=== PATIENT | male | born 1970 | race African-American/Black ===

== ENCOUNTER 2019-01-22 02:51 | Inpatient (IN) ==
[2019-01-22] MEDS ORDERED: INFLUENZA VIRUS VACCINE 0.5 ML SYRINGE IM ONE (05:05)
[2019-01-22] MEDS ORDERED: PHENOL 1.4% THROAT SPRAY 177 ML BOTTLE PO PRN (05:15)
[2019-01-22] MEDS ORDERED: SODIUM CHLORIDE 0.9% 1,000 ML IV PRN (05:15)
[2019-01-22] MEDS ORDERED: SODIUM CHLORIDE 0.9% 1,000 ML IV SCH (05:30)
[2019-01-22] MEDS ORDERED: cefTRIAXone 1,000 MG in SYRINGE 1 EACH IV SCH (05:30)
[2019-01-22] MEDS ORDERED: PANTOPRAZOLE INJ 80 MG in SODIUM CHLORIDE 0.9% 100 ML IV ONE (06:00)
[2019-01-22 06:52] LABS: Bilirubin,Total 0.7 MG/DL (0.2-1.0); Osmolality,Calculated 296.4 MOS/KG (273-304)
[2019-01-22 06:57] LABS: Basophils % 0.2 % (0.0-0.8); Eosinophils % 0.1 % (0.00-10.9); Hematocrit 45.9 VOL% (42.0-52.0); Hemoglobin 14.3 GM/DL (14.0-18.0); Immature Granulocytes % 0.7 %; Immature Granulocytes Absolute 0.07 #; Lymphocytes # 0.8 10*3/uL (1.4-4.0); Lymphocytes % 7.5 % (21.2-54.2); Mean Corpuscular HGB Conc 31.2 GM/DL (32-36); Mean Corpuscular Volume 87.3 FL (87-102); Mean Platelet Volume 8.8 FL (9.6-12.0); Monocytes % 5.6 % (1.7-12.7); Neutrophils % 85.9 % (38.7-73.9); Platelet Count 324 T/CUMM (130-400); Red Blood Count 5.26 MC/CUMM (3.8-5.5); Red Cell Distribution Width 13.9 % (9.3-17.3); White Blood Count 10.2 T/CUMM (4-12)
[2019-01-22] MEDS: PANTOPRAZOLE INJ 200 MG in SODIUM CHLORIDE 0.9% 250 ML IV SCH (07:07)
[2019-01-22 07:10] LABS: Band Neutrophils 9 % (0-10); Lymphocytes 11 % (20-55); Platelet Estimate Adequate; Segmented Neutrophils 76 % (50-85); Total Cells Counted 100
[2019-01-22 07:11] LABS: Burr Cells Slight; Ovalocytes Slight
[2019-01-22 07:27] LABS: Apearance,Urine CLEAR (Clear); Bacteria,Urine Occasional /HPF (Few); Bilirubin,Urine Negative (Negative); Blood, Urine Negative (Negative); Glucose,Urine (UA) Negative (Negative); Hyaline Casts,Urine 1 /LPF (0-3); Ketones,Urine Negative (Negative); Mucus,Urine Occasional /LPF (Occasional); Nitrite,Urine Negative (Negative); Protein,Urine 30 MG/DL; RBC,Urine 12 /HPF (0-4); Urine Color Yellow (Yellow)
[2019-01-22] MEDS: ALBUTEROL/IPRATROPIUM 3 ML NEB RESP TX SCH ×2 (08:17→12:07)
[2019-01-22] MEDS ORDERED: methylPREDNISolone SOD SUC 125 MG/2 ML VIAL IV ONE (10:00)
[2019-01-22] MEDS: FUROSEMIDE 40 MG/4 ML VIAL IV SCH ×2 (10:00→21:33)
[2019-01-22] MEDS: LEVOFLOXACIN 750 MG TABLET PO SCH (10:10)
[2019-01-22 12:52] LABS: INR 1.1; PT Patient Result 11.7 SECS (9.6-12.2)
[2019-01-22 12:53] LABS: Hematocrit 44.2 VOL% (42.0-52.0)
[2019-01-22] MEDS: LEVALBUTEROL 1.25 MG/3 ML NEB RESP TX SCH ×2 (13:21→19:30)
[2019-01-22] MEDS: IPRATROPIUM 500 MCG/2.5 ML NEB RESP TX SCH ×2 (13:21→19:30)
[2019-01-22] MEDS: chlordiazePOXIDE 25 MG CAPSULE PO SCH ×2 (14:45→21:32)
[2019-01-22] MEDS: ONDANSETRON 4 MG/2 ML VIAL IV PRN (16:15)
[2019-01-22] MEDS ORDERED: fentaNYL 100 MCG/2 ML VIAL IV ONE (17:39)
[2019-01-22] MEDS: methylPREDNISolone SOD SUC 40 MG/1 ML VIAL IV SCH (21:33)
[2019-01-23] MEDS: LEVALBUTEROL 1.25 MG/3 ML NEB RESP TX SCH ×4 (00:28→19:45)
[2019-01-23] MEDS: IPRATROPIUM 500 MCG/2.5 ML NEB RESP TX SCH ×4 (00:28→19:45)
[2019-01-23 04:31] LABS: Basophils % 0.2 % (0.0-0.8); Hematocrit 39.7 VOL% (42.0-52.0); Hemoglobin 12.6 GM/DL (14.0-18.0); Immature Granulocytes % 0.4 %; Immature Granulocytes Absolute 0.07 #; Lymphocytes % 5.8 % (21.2-54.2); Mean Corpuscular HGB Conc 31.7 GM/DL (32-36); Mean Corpuscular Volume 83.1 FL (87-102); Mean Platelet Volume 8.9 FL (9.6-12.0); Monocytes % 4.4 % (1.7-12.7); Neutrophils % 89.2 % (38.7-73.9); Platelet Count 338 T/CUMM (130-400); Red Blood Count 4.78 MC/CUMM (3.8-5.5); Red Cell Distribution Width 14.1 % (9.3-17.3); White Blood Count 16.5 T/CUMM (4-12)
[2019-01-23 04:57] LABS: Band Neutrophils 7 % (0-10); Hypochromasia 1+; Lymphocytes 10 % (20-55); Ovalocytes Slight; Platelet Estimate Adequate; Segmented Neutrophils 79 % (50-85); Total Cells Counted 100
[2019-01-23 05:07] LABS: Albumin 2.6 G/DL (3.4-5.0); Bilirubin,Total 0.6 MG/DL (0.2-1.0); Calcium 8.6 MG/DL (8.5-10.1); Osmolality,Calculated 284.5 MOS/KG (273-304); Total Protein 7.1 G/DL (6.4-8.3)
[2019-01-23] MEDS: PANTOPRAZOLE INJ 200 MG in SODIUM CHLORIDE 0.9% 250 ML IV SCH (07:40)
[2019-01-23] MEDS ORDERED: LACTATED RINGERS 1,000 ML IV SCH (08:00)
[2019-01-23] MEDS: FUROSEMIDE 40 MG/4 ML VIAL IV SCH ×2 (08:00→21:44)
[2019-01-23] MEDS ORDERED: PROPOFOL 200 MG/20 ML VIAL IV ONE (09:08)
[2019-01-23] MEDS ORDERED: LIDOCAINE 2% 5 ML VIAL ONE (09:08)
[2019-01-23] MEDS ORDERED: ALBUTEROL/IPRATROPIUM 3 ML NEB RESP TX STA (09:48)
[2019-01-23] MEDS: methylPREDNISolone SOD SUC 40 MG/1 ML VIAL IV SCH ×2 (11:50→21:44)
[2019-01-23] MEDS: THIAMINE 100 MG TABLET PO SCH (11:59)
[2019-01-23] MEDS: chlordiazePOXIDE 25 MG CAPSULE PO SCH ×3 (11:59→21:45)
[2019-01-23] MEDS: LEVOFLOXACIN 750 MG TABLET PO SCH (11:59)
[2019-01-23] MEDS: FOLIC ACID 1 MG TABLET PO SCH (11:59)
[2019-01-23] MEDS ORDERED: BISACODYL 5 MG TABLET PO ONE (12:00)
[2019-01-23] MEDS ORDERED: POLYETHYLENE GLYCOL POWDER 255 GM BOTTLE PO ONE (18:00)
[2019-01-23] MEDS: MORPHINE 4 MG/1 ML VIAL IV PRN (19:57)
[2019-01-23] MEDS: PANTOPRAZOLE 40 MG VIAL IV SCH (21:44)
[2019-01-24] MEDS: MORPHINE 4 MG/1 ML VIAL IV PRN ×3 (01:17→20:03)
[2019-01-24] MEDS: LEVALBUTEROL 1.25 MG/3 ML NEB RESP TX SCH ×4 (01:30→19:51)
[2019-01-24] MEDS: IPRATROPIUM 500 MCG/2.5 ML NEB RESP TX SCH ×4 (01:30→19:51)
[2019-01-24 04:52] LABS: Basophils % 0.1 % (0.0-0.8); Hematocrit 38.4 VOL% (42.0-52.0); Hemoglobin 12.5 GM/DL (14.0-18.0); Immature Granulocytes % 0.6 %; Immature Granulocytes Absolute 0.08 #; Lymphocytes # 1.3 10*3/uL (1.4-4.0); Lymphocytes % 9.2 % (21.2-54.2); Mean Corpuscular HGB Conc 32.6 GM/DL (32-36); Mean Corpuscular Volume 81.9 FL (87-102); Mean Platelet Volume 9.2 FL (9.6-12.0); Monocytes % 9.6 % (1.7-12.7); Neutrophils % 80.5 % (38.7-73.9); Platelet Count 366 T/CUMM (130-400); Red Blood Count 4.69 MC/CUMM (3.8-5.5); Red Cell Distribution Width 14.2 % (9.3-17.3); White Blood Count 14.2 T/CUMM (4-12)
[2019-01-24 05:00] LABS: INR 1.1; PT Patient Result 11.9 SECS (9.6-12.2)
[2019-01-24 05:18] LABS: Calcium 9.3 MG/DL (8.5-10.1); Osmolality,Calculated 285.5 MOS/KG (273-304)
[2019-01-24] MEDS ORDERED: LACTATED RINGERS 1,000 ML IV SCH (08:00)
[2019-01-24] MEDS ORDERED: POTASSIUM CHLORIDE 20 MEQ/15 ML UDCUP PO ONE (08:16)
[2019-01-24] MEDS: LEVOFLOXACIN 750 MG TABLET PO SCH (08:58)
[2019-01-24] MEDS: FOLIC ACID 1 MG TABLET PO SCH (08:58)
[2019-01-24] MEDS: chlordiazePOXIDE 25 MG CAPSULE PO SCH ×3 (08:58→20:02)
[2019-01-24] MEDS: THIAMINE 100 MG TABLET PO SCH (08:58)
[2019-01-24] MEDS: FUROSEMIDE 40 MG/4 ML VIAL IV SCH ×2 (09:43→20:03)
[2019-01-24] MEDS: PANTOPRAZOLE 40 MG VIAL IV SCH ×2 (10:00→20:02)
[2019-01-24] MEDS: methylPREDNISolone SOD SUC 40 MG/1 ML VIAL IV SCH ×2 (11:02→22:11)
[2019-01-24] MEDS ORDERED: PHENYLEPHRINE 1 MG/10 ML SYRINGE IV ONE (11:23)
[2019-01-24] MEDS ORDERED: LIDOCAINE 100 MG/5 ML SYRINGE ONE (11:23)
[2019-01-24] MEDS ORDERED: ETOMIDATE 20 MG/10 ML VIAL IV ONE (11:23)
[2019-01-24] MEDS: ONDANSETRON 4 MG/2 ML VIAL IV PRN (22:11)
[2019-01-25] MEDS: LEVALBUTEROL 1.25 MG/3 ML NEB RESP TX SCH ×4 (01:29→19:45)
[2019-01-25] MEDS: IPRATROPIUM 500 MCG/2.5 ML NEB RESP TX SCH ×4 (01:29→19:45)
[2019-01-25] MEDS: MORPHINE 4 MG/1 ML VIAL IV PRN ×2 (01:54→06:14)
[2019-01-25] MEDS: ONDANSETRON 4 MG/2 ML VIAL IV PRN (06:14)
[2019-01-25] MEDS: THIAMINE 100 MG TABLET PO SCH (08:55)
[2019-01-25] MEDS: POTASSIUM CHLORIDE 20 MEQ TABLET PO SCH (08:55)
[2019-01-25] MEDS: LEVOFLOXACIN 750 MG TABLET PO SCH (08:55)
[2019-01-25] MEDS: FOLIC ACID 1 MG TABLET PO SCH (08:55)
[2019-01-25] MEDS: PANTOPRAZOLE 40 MG VIAL IV SCH ×2 (08:55→20:39)
[2019-01-25] MEDS: chlordiazePOXIDE 25 MG CAPSULE PO SCH ×3 (08:55→20:38)
[2019-01-25] MEDS: FUROSEMIDE 40 MG/4 ML VIAL IV SCH ×2 (08:56→20:43)
[2019-01-25] MEDS: methylPREDNISolone SOD SUC 40 MG/1 ML VIAL IV SCH (09:47)
[2019-01-25 10:51] LABS: Calcium 9.1 MG/DL (8.5-10.1)
[2019-01-26] MEDS: LEVALBUTEROL 1.25 MG/3 ML NEB RESP TX SCH ×4 (01:22→18:54)
[2019-01-26] MEDS: IPRATROPIUM 500 MCG/2.5 ML NEB RESP TX SCH ×4 (04:01→19:49)
[2019-01-26 04:46] LABS: Basophils % 0.3 % (0.0-0.8); Eosinophils % 0.1 % (0.00-10.9); Hematocrit 38.1 VOL% (42.0-52.0); Hemoglobin 12.3 GM/DL (14.0-18.0); Immature Granulocytes % 2.3 %; Immature Granulocytes Absolute 0.27 #; Lymphocytes # 1.7 10*3/uL (1.4-4.0); Lymphocytes % 14.2 % (21.2-54.2); Mean Corpuscular HGB Conc 32.3 GM/DL (32-36); Mean Corpuscular Volume 82.1 FL (87-102); Mean Platelet Volume 8.8 FL (9.6-12.0); Monocytes % 7.7 % (1.7-12.7); Neutrophils % 75.4 % (38.7-73.9); Platelet Count 360 T/CUMM (130-400); Red Blood Count 4.64 MC/CUMM (3.8-5.5); Red Cell Distribution Width 14.2 % (9.3-17.3); White Blood Count 11.9 T/CUMM (4-12)
[2019-01-26 04:55] LABS: Calcium 9.5 MG/DL (8.5-10.1); Osmolality,Calculated 283.4 MOS/KG (273-304)
[2019-01-26] MEDS ORDERED: MAGNESIUM CITRATE 300 ML BOTTLE PO ONE (06:00)
[2019-01-26] MEDS: FOLIC ACID 1 MG TABLET PO SCH (09:27)
[2019-01-26] MEDS: PANTOPRAZOLE 40 MG VIAL IV SCH ×2 (09:27→20:28)
[2019-01-26] MEDS: LEVOFLOXACIN 750 MG TABLET PO SCH (09:27)
[2019-01-26] MEDS: POTASSIUM CHLORIDE 20 MEQ TABLET PO SCH (09:27)
[2019-01-26] MEDS: chlordiazePOXIDE 25 MG CAPSULE PO SCH ×3 (09:27→20:28)
[2019-01-26] MEDS: FUROSEMIDE 40 MG/4 ML VIAL IV SCH (09:27)
[2019-01-26] MEDS: THIAMINE 100 MG TABLET PO SCH (09:27)
[2019-01-26] MEDS: POTASSIUM CHLORIDE 20 MEQ TABLET PO PRN ×4 (10:44→17:08)
[2019-01-26] MEDS ORDERED: BISACODYL 5 MG TABLET PO ONE (12:00)
[2019-01-26] MEDS: BUDESONIDE 0.5 MG/2 ML NEB RESP TX SCH ×2 (13:00→19:49)
[2019-01-26] MEDS: DORNASE ALFA 2.5 MG/2.5 ML VIAL RESP TX SCH ×2 (13:18→19:59)
[2019-01-26] MEDS ORDERED: POLYETHYLENE GLYCOL 3350/ELECTROLYTES 4,000 ML BOTTLE PO ONE (18:00)
[2019-01-27] MEDS: LEVALBUTEROL 1.25 MG/3 ML NEB RESP TX SCH ×4 (00:23→19:15)
[2019-01-27] MEDS: IPRATROPIUM 500 MCG/2.5 ML NEB RESP TX SCH ×4 (02:04→19:15)
[2019-01-27 05:02] LABS: Basophils # 0.1 10*3/uL (0.0-0.2); Basophils % 0.6 % (0.0-0.8); Eosinophils # 0.1 10*3/uL (0.0-0.87); Eosinophils % 0.9 % (0.00-10.9); Hematocrit 40.7 VOL% (42.0-52.0); Hemoglobin 12.8 GM/DL (14.0-18.0); Immature Granulocytes % 5.3 %; Immature Granulocytes Absolute 0.74 #; Lymphocytes # 2.5 10*3/uL (1.4-4.0); Lymphocytes % 17.9 % (21.2-54.2); Mean Corpuscular HGB Conc 31.4 GM/DL (32-36); Mean Corpuscular Volume 84.3 FL (87-102); Monocytes % 9.6 % (1.7-12.7); NRBC # 0.03 10*3/uL; Neutrophils % 65.7 % (38.7-73.9); Platelet Count 411 T/CUMM (130-400); Red Blood Count 4.83 MC/CUMM (3.8-5.5); Red Cell Distribution Width 14.4 % (9.3-17.3); White Blood Count 13.9 T/CUMM (4-12)
[2019-01-27 05:18] LABS: Calcium 9.9 MG/DL (8.5-10.1); Osmolality,Calculated 282.4 MOS/KG (273-304)
[2019-01-27 05:25] LABS: Eosinophils 2 % (0-10); Hypochromasia 1+; Lymphocytes 20 % (20-55); Ovalocytes Slight; Platelet Estimate Adequate; Segmented Neutrophils 68 % (50-85); Total Cells Counted 100
[2019-01-27] MEDS: DORNASE ALFA 2.5 MG/2.5 ML VIAL RESP TX SCH ×2 (07:30→19:37)
[2019-01-27] MEDS: BUDESONIDE 0.5 MG/2 ML NEB RESP TX SCH ×2 (07:30→19:15)
[2019-01-27] MEDS ORDERED: LACTATED RINGERS 1,000 ML IV SCH (08:00)
[2019-01-27] MEDS: PANTOPRAZOLE 40 MG VIAL IV SCH ×2 (08:12→20:58)
[2019-01-27] MEDS: POTASSIUM CHLORIDE 20 MEQ TABLET PO SCH (08:12)
[2019-01-27] MEDS: FOLIC ACID 1 MG TABLET PO SCH (08:12)
[2019-01-27] MEDS: THIAMINE 100 MG TABLET PO SCH (08:13)
[2019-01-27] MEDS: chlordiazePOXIDE 25 MG CAPSULE PO SCH ×3 (08:13→20:58)
[2019-01-27] MEDS: LEVOFLOXACIN 750 MG TABLET PO SCH (08:13)
[2019-01-27] MEDS ORDERED: BISACODYL 5 MG TABLET PO ONE (12:00)
[2019-01-27] MEDS ORDERED: POLYETHYLENE GLYCOL POWDER 255 GM BOTTLE PO ONE (18:00)
[2019-01-27] MEDS: buPROPion SR 100 MG TABLET PO SCH (20:58)
[2019-01-28] MEDS: LEVALBUTEROL 1.25 MG/3 ML NEB RESP TX SCH ×3 (00:08→11:28)
[2019-01-28] MEDS: IPRATROPIUM 500 MCG/2.5 ML NEB RESP TX SCH ×3 (00:08→12:50)
[2019-01-28 05:39] LABS: Basophils # 0.1 10*3/uL (0.0-0.2); Basophils % 0.7 % (0.0-0.8); Eosinophils # 0.3 10*3/uL (0.0-0.87); Eosinophils % 2.4 % (0.00-10.9); Hematocrit 37.7 VOL% (42.0-52.0); Immature Granulocytes % 9.4 %; Lymphocytes # 2.5 10*3/uL (1.4-4.0); Lymphocytes % 18.2 % (21.2-54.2); Mean Corpuscular HGB Conc 31.8 GM/DL (32-36); Mean Corpuscular Volume 83.2 FL (87-102); Mean Platelet Volume 8.9 FL (9.6-12.0); Monocytes % 8.6 % (1.7-12.7); Neutrophils % 60.7 % (38.7-73.9); Platelet Count 392 T/CUMM (130-400); Red Blood Count 4.53 MC/CUMM (3.8-5.5); Red Cell Distribution Width 14.5 % (9.3-17.3); White Blood Count 13.9 T/CUMM (4-12)
[2019-01-28 05:46] LABS: INR 1.1; PT Patient Result 11.4 SECS (9.6-12.2)
[2019-01-28 06:00] LABS: Band Neutrophils 3 % (0-10); Calcium 9.2 MG/DL (8.5-10.1); Eosinophils 1 % (0-10); Lymphocytes 23 % (20-55); Myelocytes 1 %; Osmolality,Calculated 272.1 MOS/KG (273-304); Platelet Estimate Adequate; Segmented Neutrophils 63 % (50-85); Total Cells Counted 100
[2019-01-28 06:01] LABS: Hypochromasia 1+; Ovalocytes Slight
[2019-01-28] MEDS: BUDESONIDE 0.5 MG/2 ML NEB RESP TX SCH ×2 (07:12→18:40)
[2019-01-28] MEDS: DORNASE ALFA 2.5 MG/2.5 ML VIAL RESP TX SCH ×2 (07:30→18:40)
[2019-01-28] MEDS: LACTATED RINGERS 1,000 ML IV SCH (08:00)
[2019-01-28] MEDS ORDERED: LIDOCAINE 2% 5 ML VIAL ONE (10:00)
[2019-01-28] MEDS ORDERED: ETOMIDATE 20 MG/10 ML VIAL IV ONE (10:00)
[2019-01-28] MEDS ORDERED: PROPOFOL 200 MG/20 ML VIAL IV ONE (10:00)
[2019-01-28] MEDS ORDERED: ALBUTEROL/IPRATROPIUM 3 ML NEB RESP TX ONE (10:37)
[2019-01-28] MEDS ORDERED: methylPREDNISolone SOD SUC 125 MG/2 ML VIAL IV STA (11:27)
[2019-01-28] MEDS ORDERED: methylPREDNISolone SOD SUC 125 MG/2 ML VIAL ONE (11:28)
[2019-01-28] MEDS: THIAMINE 100 MG TABLET PO SCH (12:46)
[2019-01-28] MEDS: chlordiazePOXIDE 25 MG CAPSULE PO SCH ×3 (12:46→20:26)
[2019-01-28] MEDS: POTASSIUM CHLORIDE 20 MEQ TABLET PO SCH (12:46)
[2019-01-28] MEDS: buPROPion SR 100 MG TABLET PO SCH ×2 (12:47→20:26)
[2019-01-28] MEDS: PANTOPRAZOLE 40 MG VIAL IV SCH (12:47)
[2019-01-28] MEDS: FOLIC ACID 1 MG TABLET PO SCH (12:47)
[2019-01-28] MEDS: LEVOFLOXACIN 750 MG TABLET PO SCH (12:47)
[2019-01-28] MEDS ORDERED: chlordiazePOXIDE 25 MG CAPSULE PO PRN (14:58)
[2019-01-28] MEDS: MULTIVITAMIN (BEROCCA) TABLET PO SCH (16:12)
[2019-01-28] MEDS: ENOXAPARIN 40 MG/0.4 ML SYRINGE SUBCUT SCH (16:12)
[2019-01-28] MEDS: VANCOMYCIN INJ 1,000 MG in SODIUM CHLORIDE 0.9% 250 ML IV SCH (16:13)
[2019-01-28] MEDS: PIPERACILLIN/TAZOBACTAM 3,375 MG in SODIUM CHLORIDE 0.9% 100 ML IV SCH (17:31)
[2019-01-28] MEDS: ALBUTEROL/IPRATROPIUM 3 ML NEB RESP TX SCH ×2 (18:40→23:00)
[2019-01-28] MEDS: BUDESONIDE/FORMOTEROL 160-4.5 INHALER 6 GM INH SCH (20:25)
[2019-01-28] MEDS: ONDANSETRON 4 MG/2 ML VIAL IV PRN (20:26)
[2019-01-28] MEDS: MORPHINE 4 MG/1 ML VIAL IV PRN (20:28)
[2019-01-28] MEDS ORDERED: PANTOPRAZOLE 40 MG TABLET PO SCH (21:00)
[2019-01-29] MEDS: PIPERACILLIN/TAZOBACTAM 3,375 MG in SODIUM CHLORIDE 0.9% 100 ML IV SCH ×3 (01:53→17:37)
[2019-01-29] MEDS: MORPHINE 4 MG/1 ML VIAL IV PRN ×2 (01:57→06:04)
[2019-01-29] MEDS: ALBUTEROL/IPRATROPIUM 3 ML NEB RESP TX SCH ×6 (03:00→22:36)
[2019-01-29 05:15] LABS: Basophils % 0.2 % (0.0-0.8); Hematocrit 34.8 VOL% (42.0-52.0); Immature Granulocytes % 6.5 %; Immature Granulocytes Absolute 1.33 #; Lymphocytes # 1.9 10*3/uL (1.4-4.0); Mean Corpuscular HGB Conc 31.6 GM/DL (32-36); Mean Corpuscular Volume 82.9 FL (87-102); Monocytes % 7.6 % (1.7-12.7); Neutrophils % 76.7 % (38.7-73.9); Platelet Count 404 T/CUMM (130-400); Red Cell Distribution Width 14.4 % (9.3-17.3); White Blood Count 20.6 T/CUMM (4-12)
[2019-01-29 05:37] LABS: Calcium 8.9 MG/DL (8.5-10.1); Osmolality,Calculated 281.5 MOS/KG (273-304)
[2019-01-29 05:39] LABS: Lymphocytes 6 % (20-55); Platelet Estimate Normal; Segmented Neutrophils 87 % (50-85); Total Cells Counted 100
[2019-01-29] MEDS: VANCOMYCIN INJ 1,000 MG in SODIUM CHLORIDE 0.9% 250 ML IV SCH ×2 (06:03→15:06)
[2019-01-29] MEDS: ONDANSETRON 4 MG/2 ML VIAL IV PRN (06:04)
[2019-01-29] MEDS: BUDESONIDE 0.5 MG/2 ML NEB RESP TX SCH (07:35)
[2019-01-29] MEDS: DORNASE ALFA 2.5 MG/2.5 ML VIAL RESP TX SCH ×2 (07:45→19:29)
[2019-01-29] MEDS: MULTIVITAMIN (BEROCCA) TABLET PO SCH (08:42)
[2019-01-29] MEDS: PANTOPRAZOLE 40 MG TABLET PO SCH (08:42)
[2019-01-29] MEDS: THIAMINE 100 MG TABLET PO SCH (08:42)
[2019-01-29] MEDS: LEVOFLOXACIN 750 MG TABLET PO SCH (08:42)
[2019-01-29] MEDS: CHOLECALCIFEROL 1,000 UNIT TABLET PO SCH (08:42)
[2019-01-29] MEDS: chlordiazePOXIDE 25 MG CAPSULE PO SCH (08:42)
[2019-01-29] MEDS: buPROPion SR 100 MG TABLET PO SCH ×2 (08:42→22:17)
[2019-01-29] MEDS: NICOTINE 21 MG/24 HR PATCH TRANSDERM SCH (08:43)
[2019-01-29] MEDS: FOLIC ACID 1 MG TABLET PO SCH (08:47)
[2019-01-29] MEDS: BUDESONIDE/FORMOTEROL 160-4.5 INHALER 6 GM INH SCH ×2 (08:47→22:15)
[2019-01-29] MEDS: LACTATED RINGERS 1,000 ML IV SCH (13:40)
[2019-01-29] MEDS: ENOXAPARIN 40 MG/0.4 ML SYRINGE SUBCUT SCH (15:09)
[2019-01-29] MEDS: ACETAMINOPHEN 500 MG TABLET PO SCH ×2 (15:09→22:16)
[2019-01-29] MEDS: NORTRIPTYLINE 25 MG CAPSULE PO SCH (22:16)
[2019-01-30] MEDS: PIPERACILLIN/TAZOBACTAM 3,375 MG in SODIUM CHLORIDE 0.9% 100 ML IV SCH ×3 (01:52→18:29)
[2019-01-30] MEDS: ALBUTEROL/IPRATROPIUM 3 ML NEB RESP TX SCH ×5 (02:30→19:21)
[2019-01-30] MEDS: VANCOMYCIN INJ 1,000 MG in SODIUM CHLORIDE 0.9% 250 ML IV SCH ×2 (05:01→20:01)
[2019-01-30 05:49] LABS: Basophils # 0.1 10*3/uL (0.0-0.2); Basophils % 0.4 % (0.0-0.8); Eosinophils # 0.2 10*3/uL (0.0-0.87); Eosinophils % 1.4 % (0.00-10.9); Hematocrit 32.2 VOL% (42.0-52.0); Immature Granulocytes % 11.8 %; Lymphocytes # 2.4 10*3/uL (1.4-4.0); Lymphocytes % 18.9 % (21.2-54.2); Mean Corpuscular HGB Conc 31.1 GM/DL (32-36); Mean Corpuscular Volume 86.1 FL (87-102); Mean Platelet Volume 8.7 FL (9.6-12.0); Monocytes % 9.2 % (1.7-12.7); NRBC # 0.03 10*3/uL; Neutrophils % 58.3 % (38.7-73.9); Platelet Count 336 T/CUMM (130-400); Red Blood Count 3.74 MC/CUMM (3.8-5.5); Red Cell Distribution Width 14.7 % (9.3-17.3); White Blood Count 12.8 T/CUMM (4-12)
[2019-01-30 06:13] LABS: Band Neutrophils 3 % (0-10); Lymphocytes 24 % (20-55); Segmented Neutrophils 69 % (50-85); Total Cells Counted 100
[2019-01-30 06:14] LABS: Hypochromasia 1+; Ovalocytes Slight; Platelet Estimate Adequate
[2019-01-30 06:33] LABS: Calcium 8.5 MG/DL (8.5-10.1)
[2019-01-30] MEDS: DORNASE ALFA 2.5 MG/2.5 ML VIAL RESP TX SCH ×2 (07:34→19:21)
[2019-01-30] MEDS: ACETAMINOPHEN 500 MG TABLET PO SCH ×3 (09:07→22:29)
[2019-01-30] MEDS: FOLIC ACID 1 MG TABLET PO SCH (09:08)
[2019-01-30] MEDS: LACTATED RINGERS 1,000 ML IV SCH (09:08)
[2019-01-30] MEDS: buPROPion SR 100 MG TABLET PO SCH ×2 (09:08→22:29)
[2019-01-30] MEDS: NICOTINE 21 MG/24 HR PATCH TRANSDERM SCH (09:08)
[2019-01-30] MEDS: THIAMINE 100 MG TABLET PO SCH (09:08)
[2019-01-30] MEDS: CHOLECALCIFEROL 1,000 UNIT TABLET PO SCH (09:08)
[2019-01-30] MEDS: PANTOPRAZOLE 40 MG TABLET PO SCH (09:08)
[2019-01-30] MEDS: MULTIVITAMIN (BEROCCA) TABLET PO SCH (09:08)
[2019-01-30] MEDS: BUDESONIDE/FORMOTEROL 160-4.5 INHALER 6 GM INH SCH ×2 (09:10→22:28)
[2019-01-30] MEDS: FLUCONAZOLE 100 MG TABLET PO SCH (13:45)
[2019-01-30] MEDS: ENOXAPARIN 40 MG/0.4 ML SYRINGE SUBCUT SCH (16:45)
[2019-01-30] MEDS: VANCOMYCIN INJ 1,250 MG in SODIUM CHLORIDE 0.9% 250 ML IV SCH (17:12)
[2019-01-30] MEDS: NORTRIPTYLINE 25 MG CAPSULE PO SCH (22:29)
[2019-01-31] MEDS: ALBUTEROL/IPRATROPIUM 3 ML NEB RESP TX SCH ×4 (00:29→11:05)
[2019-01-31] MEDS: PIPERACILLIN/TAZOBACTAM 3,375 MG in SODIUM CHLORIDE 0.9% 100 ML IV SCH ×2 (02:16→08:01)
[2019-01-31 05:13] LABS: Basophils # 0.1 10*3/uL (0.0-0.2); Basophils % 0.5 % (0.0-0.8); Eosinophils # 0.3 10*3/uL (0.0-0.87); Eosinophils % 2.1 % (0.00-10.9); Hematocrit 31.4 VOL% (42.0-52.0); Hemoglobin 9.7 GM/DL (14.0-18.0); Immature Granulocytes % 11.3 %; Immature Granulocytes Absolute 1.48 #; Lymphocytes # 2.8 10*3/uL (1.4-4.0); Lymphocytes % 21.1 % (21.2-54.2); Mean Corpuscular HGB Conc 30.9 GM/DL (32-36); Mean Corpuscular Volume 85.1 FL (87-102); Mean Platelet Volume 8.8 FL (9.6-12.0); Monocytes % 6.8 % (1.7-12.7); NRBC # 0.03 10*3/uL; Neutrophils % 58.2 % (38.7-73.9); Platelet Count 332 T/CUMM (130-400); Red Blood Count 3.69 MC/CUMM (3.8-5.5); White Blood Count 13.2 T/CUMM (4-12)
[2019-01-31 05:41] LABS: Calcium 8.5 MG/DL (8.5-10.1); Osmolality,Calculated 283.1 MOS/KG (273-304)
[2019-01-31] MEDS: VANCOMYCIN INJ 1,250 MG in SODIUM CHLORIDE 0.9% 250 ML IV SCH (05:44)
[2019-01-31 07:19] LABS: Band Neutrophils 1 % (0-10); Hypochromasia 1+; Lymphocytes 21 % (20-55); Segmented Neutrophils 73 % (50-85); Total Cells Counted 100
[2019-01-31 07:20] LABS: Microcytosis 1+; Ovalocytes Slight
[2019-01-31 07:21] LABS: Atypical Lymphocytes Few
[2019-01-31] MEDS: DORNASE ALFA 2.5 MG/2.5 ML VIAL RESP TX SCH (07:30)
[2019-01-31 07:50] VITALS: BP 102/56
[2019-01-31] MEDS: LACTATED RINGERS 1,000 ML IV SCH (07:57)
[2019-01-31] MEDS: CHOLECALCIFEROL 1,000 UNIT TABLET PO SCH (07:59)
[2019-01-31] MEDS: MULTIVITAMIN (BEROCCA) TABLET PO SCH (07:59)
[2019-01-31] MEDS: buPROPion SR 100 MG TABLET PO SCH (07:59)
[2019-01-31] MEDS: FOLIC ACID 1 MG TABLET PO SCH (07:59)
[2019-01-31] MEDS: ACETAMINOPHEN 500 MG TABLET PO SCH (07:59)
[2019-01-31] MEDS: THIAMINE 100 MG TABLET PO SCH (07:59)
[2019-01-31] MEDS: PANTOPRAZOLE 40 MG TABLET PO SCH (07:59)
[2019-01-31] MEDS: FLUCONAZOLE 100 MG TABLET PO SCH (08:00)
[2019-01-31] MEDS: NICOTINE 21 MG/24 HR PATCH TRANSDERM SCH (08:02)
[2019-01-31] MEDS: BUDESONIDE/FORMOTEROL 160-4.5 INHALER 6 GM INH SCH (08:03)
[2019-01-31] MEDS ORDERED: DOXYCYCLINE HYCLATE 100 MG CAPSULE PO SCH (17:00)
[2019-01-31] MEDS ORDERED: CEFDINIR 300 MG CAPSULE PO SCH (21:00)
== END 2019-01-31 13:07 | DRG 377 ==
LOC: N.ICU 04:23 → SUATTDRO 04:23 → N.5E 01-23 12:27
PROVIDERS: ADMIT Internal Medicine; ATTEND Hospitalist